=== PATIENT | female | born 1990 | race Caucasian/White ===

== ENCOUNTER 2016-11-20 21:18 | Emergency (ER) | payer OTHER ==
--- NOTE | ~2016-11-20 | CT71 ---
[facility] A Service of [facility] & [facility] RADIOLOGY TEXT RESULTS PATIENT: EUGENIA PENALOZA LOCATION: SED : [birth year] UNIT #: [id number] AGE: [address]: Alexander Morales MD SEX: F ORDER DR: [id number] [address] [address] [id number] E MR#: [id number] Acc #: [id number] NAME: EUGENIA PENALOZA : 1990 SEX: F STUDY DATE/TIME: 11/20/2016 22:07 UNIT: SED ROOM: STUDY DESCRIPTION: CT Head Wo Contrast Attending Physician: Alexander Morales M.D. Ordering Physician: Alexander Morales M.D. Primary Care Physician: Primary Care Physician No MEDICAL IMAGING REPORT This report is preliminary unless electronic signature is present. EXAM CT brain without contrast HISTORY Migraine headache for 3 days. Right posterior head pain. Blurred vision. TECHNIQUE This CT exam was performed with one or more of the following radiation dose reduction techniques: automatic exposure control, adjustment of mA and/or kV according to patient size, and iterative reconstruction. FINDINGS Axial noncontrast images were obtained from the skull base to the vertex. Ventricular size and configuration are normal. There is no evidence of acute infarct or hemorrhage. There are no extraaxial fluid collections. No mass lesion or mass effect is seen. There are no skull fractures. IMPRESSION Normal noncontrast head CT. Dictated by... Yovanny Lyons M.D. THIS IS AN ELECTRONICALLY VERIFIED REPORT Yovanny Lyons M.D. at 11/21/2016 1:33 PM Marielos TD: 11/21/2016 12:04 JOB #: [id number] MEDICAL IMAGING REPORT Page 1 of 1
[~2016-11-20 21:18] MED LIST: ALBUTEROL INHALER; ALBUTEROL17 GM INH; HYDROMET SYRUP480 ML PO; IRON SUPPLEMENT1 TAB PO; MOTRIN600 M2 DOB; MUCINEX FAST-M1 EAC2 PO; NO MEDICATIONS; PREDNISONE PO; PROAIR HFA8.5 GM IH; TRAMADOL HCL E200 MG PO; VOLTAREN75 MG PO; ZITHROMAX PO; ZOFRAN ODT4 MG PO; ZOFRANODT PO
[2017-05-18] MEDS ORDERED: VITAMIN D1000 UNI2 PO (07:51)
== END 2016-11-21 00:39 | disposition home or self-care (01) ==
LOC: SED 21:18
DX: G43.909 Migraine, unspecified, not intractable, without status migrainosus (principal); J45.909 Unspecified asthma, uncomplicated; F17.200 Nicotine dependence, unspecified, uncomplicated
CPT/HCPCS: 70450; 84703; 96374; 96375; 99284; J0780; J1200; J1885

== ENCOUNTER 2016-12-13 13:22 | Emergency (ER) | payer OTHER ==
[2016-12-13 13:19] LABS: URINE APPEARANCE SL CLOUDY; URINE BILIRUBIN NEG (NEG); URINE BLOOD 3+ (NEG); URINE COLOR YELLOW; URINE GLUCOSE NEG (NORM); URINE KETONE NEG (NEG); URINE LEUKOCYTE ESTERASE 2+ (NEG); URINE NITRATE NEG (NEG); URINE PH 5.5 (5-8); URINE PROTEIN 1+ (NEG); URINE SOURCE CLEAN CATCH; URINE SPECIFIC GRAVITY 1.025 (1.003-1.035); URINE UROBILINOGEN 0.2 MG/DL (NORM)
[2016-12-13 13:20] LABS: MICRO INDICATED? YES
[2016-12-13 13:29] LABS: CULTURE INDICATED? YES; URINE BACTERIA 4+ (NEG); URINE RBC 100-200 /[HPF] (0-2); URINE SQUAMOUS EPITHELIAL CELL MODERATE /[HPF]; URINE WBC INNUM /[HPF] (0-5)
[2017-05-18] MEDS ORDERED: VITAMIN D1000 UNI2 PO (07:51)
== END 2016-12-13 14:02 | disposition home or self-care (01) ==
LOC: SED 13:22
PROVIDERS: Physician Assistant
DX: N30.90 Cystitis, unspecified without hematuria (principal); J45.909 Unspecified asthma, uncomplicated; F32.9 Major depressive disorder, single episode, unspecified; Z98.890 Other specified postprocedural states; F17.210 Nicotine dependence, cigarettes, uncomplicated
CPT/HCPCS: 81003; 84703; 87086; 87088; 87186; 99283

== ENCOUNTER 2017-01-29 00:19 | Emergency (ER) | payer OTHER ==
[2017-01-29] MEDS ORDERED: NO MEDICATIONS (00:29)
[2017-05-18] MEDS ORDERED: VITAMIN D1000 UNI2 PO (07:51)
== END 2017-01-29 03:00 | disposition home or self-care (01) ==
LOC: SED 00:19
DX: F41.1 Generalized anxiety disorder (principal); F43.0 Acute stress reaction; J45.909 Unspecified asthma, uncomplicated; F90.9 Attention-deficit hyperactivity disorder, unspecified type; F17.200 Nicotine dependence, unspecified, uncomplicated
CPT/HCPCS: 99283

== ENCOUNTER 2017-02-03 06:03 | Emergency (ER) | payer OTHER ==
--- NOTE | ~2017-02-03 | EKG ---
PATIENT: EUGENIA PENALOZA UNIT #: [id number] Ventricular Rate: 68 BPM Atrial Rate: 68 BPM P-R Interval: 170 ms QRS Duration: 82 ms Q-T Interval: 388 ms QTC Calculation(Bezet): 412 ms P [place]: 13 degrees Calculated R [place]: 37 degrees Diagnosis Line: Normal sinus rhythm Diagnosis Line: Normal ECG Diagnosis Line: When compared with ECG of 04-NOV-2015 07:48, Diagnosis Line: No significant change was found Diagnosis Line: Confirmed by JESUS CARRENO MD ([id number]) on Diagnosis Line: 02/10/2017 8:28:30 AM INTERPRETING MD: WAI MULLINS
[2017-02-03] MEDS ORDERED: HYDROXYZINE HCL25 M1 PO (06:16)
[2017-05-18] MEDS ORDERED: VITAMIN D1000 UNI2 PO (07:51)
== END 2017-02-03 06:45 | disposition home or self-care (01) ==
LOC: SED 06:03
DX: F41.1 Generalized anxiety disorder (principal); J45.909 Unspecified asthma, uncomplicated; F90.9 Attention-deficit hyperactivity disorder, unspecified type; F17.200 Nicotine dependence, unspecified, uncomplicated
CPT/HCPCS: 93005; 99283

== ENCOUNTER 2017-02-17 11:19 | Emergency (ER) | payer OTHER ==
[~2017-02-17 11:19] MED LIST changes: +HYDROXYZINE HCL25 M1 PO
[2017-02-17 12:14] LABS: BASOPHIL% 0.4 % (0-2.5); DIFF IND NO; EOSINOPHIL% 0.8 % (0.0-7.0); HEMATOCRIT 30.9 % (35.0-45.0); HEMOGLOBIN 10.6 gm/dL (12.0-16.0); LYMPHOCYTE# 2.3 X10e3 (1.0-3.5); LYMPHOCYTE% 40.1 % (17.0-45.0); MEAN CELL VOLUME 102.8 FL (83-96); MEAN CORPUSCULAR HEMOGLOBIN 35.3 PG (28-34); MEAN CORPUSCULAR HGB CONC 34.4 g/dL (30-36); MEAN PLATELET VOLUME 7.1 FL (6.5-11.5); MONOCYTE# 0.4 X10e3 (0-1.0); MONOCYTE% 7.3 % (3.0-12.0); NEUTROPHIL# 2.9 X10e3 (1.5-7.1); NEUTROPHIL% 51.4 % (40-75); PLATELET COUNT 148 X10e3 (140-420); RED CELL DISTRIBUTION WIDTH 15.9 % (11.0-15.5); WHITE BLOOD COUNT 5.7 X10e3 (4.0-10.5)
[2017-02-17 12:51] LABS: ALBUMIN SERUM 4.2 g/dL (3.5-5.0); BILIRUBIN, DIRECT 0.2 mg/dL (0.0-0.2); BILIRUBIN,INDIRECT 0.4 mg/dL (0.0-0.9); BILIRUBIN,TOTAL 0.6 mg/dL (0.2-2.0); BUN/CREATININE RATIO 25.71; CREATININE SERUM 0.7 mg/dL (0.6-1.4); GLOM FILT RATE Estimated 119.6 mL/min (>60); POTASSIUM 3.8 mmol/L (3.5-5.1); PROTEIN TOTAL SERUM 6.5 g/dL (6.0-8.3)
[2017-05-18] MEDS ORDERED: VITAMIN D1000 UNI2 PO (07:51)
== END 2017-02-17 14:28 | disposition home or self-care (01) ==
LOC: SED 11:19
PROVIDERS: Emergency Medicine
DX: D51.0 Vitamin B12 deficiency anemia due to intrinsic factor deficiency (principal); K64.9 Unspecified hemorrhoids; J45.909 Unspecified asthma, uncomplicated; F31.9 Bipolar disorder, unspecified; F90.9 Attention-deficit hyperactivity disorder, unspecified type; Z90.49 Acquired absence of other specified parts of digestive tract
CPT/HCPCS: 80048; 80076; 82270; 84703; 85025; 99283

== ENCOUNTER 2017-03-20 06:43 | Emergency (ER) | payer OTHER ==
--- NOTE | ~2017-03-20 | CR63 ---
[facility]. [facility] A Service of [facility] & [facility] RADIOLOGY TEXT RESULTS PATIENT: EUGENIA PENALOZA LOCATION: SED : 90 UNIT #: [id number] AGE: [address]: Yinka Schmidt MD SEX: F ORDER DR: [id number] [place] [id number] E MR#: [id number] Acc #: [id number] NAME: EUGENIA PENALOZA : 1990 SEX: F STUDY DATE/TIME: 03/20/2017 7:36 UNIT: SED ROOM: STUDY DESCRIPTION: CR Chest 2 View Attending Physician: Yinka Schmidt M.D. Ordering Physician: Yinka Schmidt M.D. Primary Care Physician: No Primary Care Physician MEDICAL IMAGING REPORT This report is preliminary unless electronic signature is present. EXAM PA and lateral chest. INDICATIONS Cough 15 minutes with chest pain and shortness of air. COMPARISON 06/16/2016 FINDINGS PA and lateral examination of the chest upright shows a good expansion of the parenchyma with a normal distribution of the pulmonary vascularity. There is no indication of congestion, effusion, infiltrate, tumor, or nodular density. The pleural reflections and diaphragmatic contours are normal. The cardiac silhouette and mediastinal anatomy is within normal limits. IMPRESSION Normal PA and lateral chest. Dictated by... Yinka Grover M.D. THIS IS AN ELECTRONICALLY VERIFIED REPORT Yinka Grover M.D. at 03/21/2017 9:34 PM ALICIA/ralph TD: 03/20/2017 22:20 JOB #: [id number] MEDICAL IMAGING REPORT Page 1 of 1
--- NOTE | ~2017-03-20 | EKG ---
PATIENT: EUGENIA PENALOZA UNIT #: [id number] Ventricular Rate: 95 BPM Atrial Rate: 95 BPM P-R Interval: 148 ms QRS Duration: 74 ms Q-T Interval: 346 ms QTC Calculation(Bezet): 434 ms P [place]: 54 degrees Calculated R [place]: 10 degrees Calculated T [place]: -4 degrees Diagnosis Line: Normal sinus rhythm Diagnosis Line: Nonspecific ST and T wave abnormality Diagnosis Line: Abnormal ECG Diagnosis Line: When compared with ECG of 03-FEB-2017 06:24, Diagnosis Line: ST now depressed in Anterior leads Diagnosis Line: Nonspecific T wave abnormality now evident in Diagnosis Line: Anterior leads Diagnosis Line: Confirmed by JESUS CARRENO MD ([id number]) on Diagnosis Line: 03/22/2017 3:24:30 PM INTERPRETING MD: WAI MULLINS
[2017-05-18] MEDS ORDERED: VITAMIN D1000 UNI2 PO (07:51)
== END 2017-03-20 08:07 | disposition home or self-care (01) ==
LOC: SED 06:43
DX: J44.1 Chronic obstructive pulmonary disease with (acute) exacerbation (principal); J20.9 Acute bronchitis, unspecified; R09.1 Pleurisy; F31.9 Bipolar disorder, unspecified; F90.9 Attention-deficit hyperactivity disorder, unspecified type; F32.9 Major depressive disorder, single episode, unspecified; F17.210 Nicotine dependence, cigarettes, uncomplicated
CPT/HCPCS: 71020; 93005; 94640; 99283